=== PATIENT | male | born 1970 | race Caucasian/White ===

== ENCOUNTER 2024-03-15 15:46 | Emergency (ER) | payer BC, SELFPAY ==
[2024-03-15 15:52] VITALS: BP 125/74; PULSE 56; RESP 16; TEMP 36.8; O2SAT 100
--- NOTE | 2024-03-15 16:08 | ED.WOUNDLAC ---
HPI - Wound/Laceration General Chief Complaint: Wound/Laceration Stated Complaint: lac on forehead Time Seen by Provider: 03/15/24 16:05 Source: patient, RN notes reviewed and old records reviewed Mode of arrival: ambulatory Limitations: no limitations History of Present Illness HPI narrative: 54 [facility] with complaints of hitting his forehead when he opened the car door just prior to arrival with laceration vertical to tissue at left inner eyebrow with bleeding controlled. Patient reports that his tetanus is not up to date but refuses tetanus booster today while in clinic. Patient reports that he has a little headache but denies any dizziness or any nausea, states no LOC at time of incident. Onset (ago): minute(s) (within 30 minutes prior to arrival) Location: face (vertical at left inner eyebrow) Place: outdoors Patient tetanus UTD: No Treatments prior to arrival: bandage Related Data Home Medications Medication Instructions Recorded Confirmed pantoprazole 40 mg tablet,delayed 40 mg PO DAILY 03/15/24 03/15/24 release Allergies Allergy/AdvReac Type Severity Reaction Status Date / Time ibuprofen Allergy Dyspnea / Verified 03/15/24 15:59 SOB Review of Systems Review of Systems: CONSTITUTIONAL: Denies fever, chills, or sweats. CARDIOVASCULAR: Denies chest pain, palpitations, or edema. RESPIRATORY: Denies cough or dyspnea. SKIN: Reports vertical laceration to tissue area at inner left eyebrow pain to area with some swelling noted no LOC at time of injury MUSCULOSKELETAL: Denies musculoskeletal pain NEUROLOGIC: Denies numbness, or weakness. All systems reviewed & are unremarkable except as noted in HPI and below PMFSH Past Medical History Medical History (Updated 03/16/24 @ 10:44 by Deedee Alejandra NP) GERD (gastroesophageal reflux disease) Surgical History Surgical History (Updated 03/16/24 @ 10:45 by Deedee Alejandra NP) History of total replacement of both hip joints Social History Social History (Updated 03/16/24 @ 10:48 by Deedee Alejandra NP) Smoking status: Unknown if ever smoked Alcohol intake: current Alcohol use details: rare social Substance use type: does not use Living arrangements: with family Gender identity (if verbalized by the patient): Male Comments At time of signature, agree with nursing past medical, surgical, social and family history. There is no relevant family history pertinent to the presenting complaint Exam Narrative: GENERAL: Well-appearing, well-nourished, and in no acute distress. HEAD: Normocephalic, atraumatic. NECK: Supple. no lymphadenopathy CHEST: Clear to auscultation. No respiratory distress.SAO2 100% on room air HEART: Regular rate and rhythm. No murmur heard. Normal peripheral pulses. EXTREMITIES: Normal range of motion. No edema. SKIN: Warm, dry, no rash. Reports vertical 1 cm laceration to area of face near inner left eyebrow bleeding controlled no LOC at time of incident, see procedure note NEURO: No focal deficits. Alert and oriented x3. Course Course Level of Care: Express Care Visit Vital Signs Vital signs: Vital Signs Temperature 36.8 C 03/15/24 15:52 Pulse Rate 56 L 03/15/24 15:52 Respiratory Rate 16 03/15/24 15:52 Blood Pressure 125/74 03/15/24 15:52 Pulse Oximetry 100 03/15/24 15:52 Oxygen Delivery Room Air 03/15/24 15:52 Temperature 36.8 C 03/15/24 15:52 Pulse Rate 56 L 03/15/24 15:52 Respiratory Rate 16 03/15/24 15:52 Blood Pressure 125/74 03/15/24 15:52 Pulse Oximetry 100 03/15/24 15:52 Oxygen Delivery Room Air 03/15/24 15:52 Procedures Laceration inner eyebrow area: Date: 03/15/24 Time: 16:15 Site: face (inner eybrow area vertical laceration) Side (If applicable): left Size (cm): 1 Description: linear Depth: simple, single layer Local Anesthetic: none Pre-repa
== END 2024-03-15 16:44 | disposition home or self-care (01) ==
PROVIDERS: Emergency Provider Registered Nurse
DX: S01.81XA Laceration without foreign body of other part of head, initial encounter (principal); W22.8XXA Striking against or struck by other objects, initial encounter; K21.9 Gastro-esophageal reflux disease without esophagitis; Z96.643 Presence of artificial hip joint, bilateral
CPT/HCPCS: 12011; 99212; G0463

== ENCOUNTER 2024-11-28 14:44 | Outpatient (CLI) | payer BC, SELFPAY ==
--- NOTE | ~2024-11-28 | XR_ITS ---
Left Hand Technique: PA, oblique, and lateral views were obtained. Clinical History: Pain Findings: No acute fracture or dislocation is seen. Osseous alignment is anatomic. There is mild dege nerative change of the fifth PIP joint and third DIP joint. Soft tissues are unremarkable. Impression: Mild degenerative change of the fifth PIP joint and third DIP joints. Reviewed, dictated and finalized at location . Impression: Mild degenerative change of the fifth PIP joint and third DIP joints.
--- NOTE | ~2024-11-28 | XR_ITS ---
Right Hand Technique: PA, oblique, and lateral views were obtained. Clinical History: Pain Findings: No acute fracture or dislocation is seen. Osseous alignment is anatomic. Joint spaces are p reserved. Soft tissues are unremarkable. Impression: Unremarkable right hand. Reviewed, dictated and finalized at location M. Impression: Unremarkable right hand.
--- OUTSIDE RECORDS SUMMARY | 2024-11-28 16:32 | XMS_ITS | Encounter Summary ---
Author Organization [facility] Care Team Providers Care Sampler Pickup Name Role Phone Clayton Aguilar MD Primary Care Provider [phone] Kristy Coulter MD Primary Care Provider [phone] Zuhair Dennis MD Unavailable [phone] Albina Tian NP Primary Care Provider [phone] Juan Carlos Cortes MD Unavailable Encounter Details Date Type Department Care Team (Latest Contact Info) Description 03/25/2016 Orders Only [facility] ProviderMassiel MD [address] [place] [id number] Social History Tobacco Use Types Packs/Day Years Used Date Smoking Tobacco: Former Sex and Gender Information Value Date Recorded Sex Assigned at Not on file Legal Sex Male 2:52 AM [employer] Gender Identity Not on file Sexual Orientation Not on file documented as of this encounter Plan of Treatment Not on file documented as of this encounter Procedures Procedure Name Priority Date/Time Associated Diagnosis Comments PROCEDURE - RESULT 2016 12 :00 AM CDT documented in this encounter Results * PROCEDURE - RESULT (2016 12:00 AM CDT) Narrative 2016 12:00 AM CDT Ordered by an unspecified provider. us Historical Provider Final Res ult documented in this encounter Visit Diagnoses Not on filedocumented in this encounter Care Teams Sampler Pickup Relationship Specialty Start Date End Date Clayton Aguilar MD PCP - General 04/21/17 04/26/19 Kristy Coulter MD [facility] [place] [address] PCP - General 04/27/19 11/21/24 Albina Tian NP [address] [id number] PCP - General Internal Medicine 11/22/24 Zuhair Dennis MD [facility] [place] [address] Surgeon Orthopedic Surgery 09/02/21 Juan Carlos Cortes MD [address] [place] [address] Referring Physician Gastroenterology 11/22/24 documented as of this encounter
--- OUTSIDE RECORDS SUMMARY | 2024-11-28 16:32 | XMS_ITS | Clinical Summary ---
Author Organization [facility] Address [address] [place] [address] Care Team Providers Care Exceptional Children Teacher Assistant Name Role Phone Zuhair Dennis MD Unavailable [phone] Albina Tian NP Primary Care Provider [phone] Juan Carlos Cortes MD Unavailable [phone] Allergies Active Allergy Reactions Criticality Noted Date Comments Amoxicillin-Pot Clavulanate Rash Medium 06/27/20 21 Cefazolin Rash Medium 09/02/2021 Hydrocodone-Acetaminophen Dizziness Low Ibuprofen Shortness of breath High 10/28/[address] (PROTONIX) 40 mg EC tablet TAKE 1 TABLET BY MOUTH ONCE A DAY 90 tablet 9 Active celecoxib (CeleBREX) 200 mg capsuleIndicat ions:Osteoarth ritis Take 1 capsule (200 mg total) by mouth daily 30 capsule 11 5 11/18/19 26 Active ascorbic acid (ascorbic acid) 500 mg tablet,chewabl e Take 1 tablet/chew tab (500 mg total) by mouth daily 42 tablet/chew tab 2 11/23/19 25 Discontin ued(Thera py completed ) oxyCODONE-acet aminophen (PERCOCET) 5-325 mg per tabletIndicati ons:Pain Take 1-2 tablets by mouth every 4 (four) hours as needed for pain 60 tablet 2 11/23/19 25 Discontin ued(Thera py completed ) ALPRAZolam (XANAX) 0.5 mg tablet Take 1 tablet (0.5 mg total) by mouth as needed (Take 1 pill 30 minutes before the MRI. Mat take the other pill if still anxious begore the test.) 2 tablet 2 11/23/19 25 Discontin ued(Thera py completed ) naloxone (NARCAN) 4 mg/actuation spray,non-aero daquan Administer 1 spray into affected nostril(s) as needed for opioid reversal or respiratory depression Call 911. Administer a single spray in one nostril. Repeat every 3 minutes as needed if no or minimal response. 1 each 2 11/23/19 25 Discontin ued(Thera py completed ) clotrimazole-b etamethasone (LOTRISONE) cream clotrimazole-be tamethasone 1 %-0.05 % topical cream APPLY TO THE AFFECTED AND SURROUNDING AREAS OF SKIN BY TOPICAL ROUTE 2 TIMES PER DAY IN THE MORNING AND EVENING FOR 2 WEEKS 11/23/19 25 Discontin ued(Thera py completed ) Active Problems Problem Noted Date Diagnosed Date History of total right hip arthroplasty 11/23/19 25 Wellness examination 11/22/2024 Assessment & Plan (11/22/2024 12:24 PM CDT): Routine health maintenance objectives discussed and orders placed for any outstanding screening studies. Physical exam performed as above. Routine annual labs obtained and will be reviewed with patient when results available. Orders: PSA screen; Future Thyroid Function [place]; Future Lipid panel; Future Comprehensive metabolic panel; Future CBC with auto differential; Future History of arthroplasty of left hip 08/29/2022 So's esophagus 11/17/2018 Overview (11/22/2024): Does EGD every 3 years. Assessment & Plan (11/22/2024 12:24 PM CDT): Resolved Problems Problem Noted Date Diagnosed Date Resolved Date Aftercare following left hip joint replacement surgery 09/16/2021 08/29/2022 Psoas tendinitis, right hip 08/01/2021 11/22/2024 Trochanteric bursitis, left hip 05/18/2019 11/22/2024 Pain due to hip joint prosthesis 12/29/2018 11/22/2024 Primary osteoarthritis of left hip 12/10/2018 09/16/2021 Encounters Date Type Department Care Team Description 11/22/2024 11:00 AM CDT Office Visit [facility] Primary Care at [address] [address] Albina Tian NP BMI 22.0-22.9, adult (Primary Dx); Wellness examination; So's esophagus without dysplasia; Encounter for screening prostate specific antigen (PSA) measurement; Screening, lipid; Encounter for screening examination for impaired glucose regulation and diabetes mellitus; Screening, anemia, deficiency, iron; Screening for thyroid disorder; Primary osteoarthritis involving multiple joints 09/30/2024 Orders Only [facility] [address] [place], [place] [id number] Scanning, Provider from Last 3 Months Surgical History Surgery Date Site/Laterality Comments HIP SURGERY Right 3 surgeries on the right hip FL FLUORO GUIDED INJECTION HIP LEFT 12/22/2018 Left FL FLUORO GUIDED INJECTION HIP LEFT 04/27/2019 Left COLONOSCOPY APPENDECTOMY NOSE SURGERY 08/17/1981 - 08/16/1982 broke nose HIP SURGERY 08/17/2021 - 08/16/2022 Left total Medical History Medical History Date Comments Aftercare following joint re placement surgery Aftercare following joint replacement - (Added by BENJAMIN Conv) Gastric reflux Osteoarthritis Covid-19 08/2020 So's esophagus GERD (gastroesophageal reflux disease) Psoas tendinitis, right hip 08/01/2021 Family History Medical History Relation Name Comments Hypertension Father Family history of hypertension - (Added by TW Conv) Lung cancer Father No Known Problems Mother Alcohol abuse Other Arthritis Other Asthma Other Cancer Other Heart disease Other Relation Name Status Comments Father Mother Alive Other Social History Tobacco Use Types Packs/Day Years Used Date Smoking Tobacco: Former Cigarettes 0.1 2 S tarted: 1989 Passive Smoke Exposure: Past Smokeless Tobacco: Current Chew Tobacco Cessation:Ready to Q uit: Not Asked; Counseling Given: Not Answered Comments:Grew up social smoking AUDIT-C Answer Date Recorded Q1: How often do you have a drink containing alc ohol? Monthly or less 11/22/2024 Average Number of Drinks Not on file 025 Q3: How often do you have si x or more drinks on one occasion? Never 11/22/2024 PHQ-2 Answer Date Recorded PHQ-2 Total Score (If total score is 3 or more points, staff should administer the PHQ-9) 0 11/22/2024 Sex and Gender Information Value Date Recorded Sex Assigned at Not on file Legal Sex Male 2:52 AM T[employer] Gender Identity Not on file Sexual Orientation Not on file Obstetrics History Last Filed Vital Signs Vital Sign Reading Time Taken Comments Blood Pressure 110/70 11/22/2024 11:18 AM CDT Pulse 55 11/22/2024 11:18 AM CDT Temperature 36.4 C (97.5 F) 11/22/2024 11:18 AM CDT Respiratory Rate 16 11/22/2024 11:18 AM CDT Oxygen Saturation 98% 11/22/2024 11:18 AM CDT Inhaled Oxygen Concentration - - Weight 64.9 kg (143 lb) 11/22/2024 11:18 AM CDT Height 170.2 cm (5' 7 ) 11/22/2024 11:18 AM CDT Body Mass Index 22.4 11/22/2024 11:18 AM CDT Plan of Treatment Health Maintenance Due Date Last Done Comments Colon Cancer Screening-Colonoscopy 1969 Hepatitis C Screening 1969 Prostate Cancer Screening-PSA 1969 DTaP/Tdap/Td Vaccine (1 - Tdap) 02/02/1980 Hepatitis B Screening 1987 Zoster Vaccine (1 of 2) 2019 Covid-19 Vaccine (3 - 2023-2 5 season) 2024 09/17/2020, 08/20/2020 Influenza Vaccine (Season Ended) 2025 Depression Screening 11/22/2025 11/22/2024 Regular Well Visit/Exam 18-64 11/22/2025 11/22/2024 Pneumococcal vaccine <65 Aged Out No longer eligible based on patient's age to complete this topic Medical Devices Implanted Type Area Senior Php Web Developer Device Identifier Shelf Expiration Date Model / Serial / Lot Joint Right: Hip Description:rt hip replaced [employer] [id number] Mcleod 52mm Sector Hip Shell Acetabular Gription Sterile Latex Free - [id number] Implanted:Qty: 1 on 09/02/2021 by Zuhair Dennis MD at [facility] Left: Hip [employer] 05/16/2031 [id number] / / [id number] [employer] [id number] Mcleod 52mm 36mm Hip Neutral Liner Acetabular Altrx Sterile Latex Free - [id number] Implanted:Qty: 1 on 09/02/2021 by Zuhair Dennis MD at [facility] Left: Hip [employer] 06/16/2026 [id number] / / [id number] [employer] 1217-35-500 Mcleod 6.5mm 35mm Acetabular Cancellous Screw Bone Sterile - [id number] Implanted:Qty: 1 on 09/02/2021 by Zuhair Dennis MD at [facility] Left: Hip [employer] 07/16/2031 1217-35-500 / / [id number] [employer] 1217-30-500 Mcleod 6.5mm 30mm Acetabular Cancellous Screw Bone Revision - [id number] Implanted:Qty: 1 on 09/02/2021 by Zuhair Dennis MD at [facility] Left: Hip [employer] 06/16/2028 1217-30-500 / / [id number] [employer] [id number] Actis 105mm Collar Hip 5 High Offset Stem Femoral - [id number] Implanted:Qty: 1 on 09/02/2021 by Zuhair Dennis MD at [facility] Left: Hip [employer] 06/16/2031 [id number] / / [id number] [employer] [id number] Articul/Ernie 36mm Cementless Hip +5mm 12/14 Taper Head Femoral Latex Free - [id number] Implanted:Qty: 1 on 09/02/2021 by Zuhair Dennis MD at [facility] Left: Hip [employer] 01/14/2026 [id number] / / [id number] Procedures Procedure Name Priority Date/Time Associated Diagnosis Comments GI - RESULT 09/30/2024 9:17 PM TARGETEER from Last 3 Months Results * GI - RESULT (09/30/2024 9:17 PM TARGETEER) Anatomical Region Laterality Modality Other us Provider Scanning Final Result from Last 3 Months [place] Advance Directives For more information, please contact: [phone] * Full Code (Latest Code Status on File) Date Activated Date Inactivated Comments 09/02/2021 10:27 AM 09/02/2021 6:49 PM Care Teams Exceptional Children Teacher Assistant Relationship Specialty Start Date End Date Albina Tian NP [address] [address] PCP - General Internal Medicine 11/22/24 Zuahir Dennis MD Surgeon Orthopedic Surgery 09/02/21 Juan Carlos Cortes MD [address] [place] [address] Referring Physician Gastroenterology 11/22/24
--- OUTSIDE RECORDS SUMMARY | 2024-11-28 16:32 | XMS_ITS | Referral Summary ---
Author Organization [facility] Address [address] [place] [address] Care Team Providers Care Front Office Developer Name Role Phone Zuhair Dennis MD Unavailable [phone] Albina Tian NP Primary Care Provider [phone] Juan Carlos Cortes MD Unavailable [phone] Encounters Date Type Department Care Team Description 11/22/2024 11:00 AM CDT Office Visit [facility] Primary Care at [address] [address] Albina Tian NP BMI 22.0-22.9, adult (Primary Dx); Wellness examination; So's esophagus without dysplasia; Encounter for screening prostate specific antigen (PSA) measurement; Screening, lipid; Encounter for screening examination for impaired glucose regulation and diabetes mellitus; Screening, anemia, deficiency, iron; Screening for thyroid disorder; Primary osteoarthritis involving multiple joints 09/30/2024 Orders Only [facility] [address] [place] [address] Scanning, Provider from Last 3 Months Allergies Active Allergy Reactions Criticality Noted Date [...] available. Orders: PSA screen; Future Thyroid Function [place]; Future Lipid panel; Future Comprehensive metabolic panel; [...] Primary osteoarthritis of left hip 12/10/2018 09/16/2021 Social History Tobacco Use Types Packs/Day Years [...] on file Legal Sex Male 2:52 AM [employer] Gender Identity Not on file Sexual Orientation Not on file Last Filed Vital Signs Vital Sign Reading [...] 11/22/2024 11:18 AM CDT Plan of Treatment Not on file Medical Devices Implanted Type Area Abstractor Device Identifier Shelf Expiration Date Model / Serial / Lot Joint Right: Hip Description:rt hip replaced [employer] [id number] [place] 52mm Sector Hip Shell Acetabular Gription Sterile Latex Free - [id number] Implanted:Qty: 1 on 09/02/2021 by Zuhair Dennis MD at [facility] Left: Hip [employer] 05/16/2031 [id number] / / [id number] [employer] [id number] Moreland 52mm 36mm Hip Neutral Liner Acetabular Altrx Sterile Latex Free - [id number] Implanted:Qty: 1 on 09/02/2021 by Zuhair Dennis MD at [facility] Left: Hip [employer] 06/16/2026 [id number] / / [id number] [employer] 1217-35-500 Moreland 6.5mm 35mm Acetabular Cancellous Screw Bone Sterile - [id number] Implanted:Qty: 1 on 09/02/2021 by Zuhair Dennis MD at [facility] Left: Hip [employer] 07/16/2031 1217-35-500 / / [id number] [employer] 1217-30-500 [place]land 6.5mm 30mm Acetabular Cancellous Screw Bone Revision - [id number] Implanted:Qty: 1 on 09/02/2021 by Zuhair Dennis MD at [facility] Left: Hip [employer] 06/16/2028 1217-30-500 / / [id number] [employer] [id number] Actis 105mm Collar Hip 5 High Offset Stem Femoral - [id number] Implanted:Qty: 1 on 09/02/2021 by Zuhair Dennis MD at [facility] Left: Hip [employer] 06/16/2031 [id number] / / [id number] [employer] [id number] Articul/Ernie 36mm Cementless Hip +5mm 07/30 Taper Head Femoral Latex Free - [id number] Implanted:Qty: 1 on 09/02/2021 by Zuhair Dennis MD at [facility] Left: Hip [employer] 01/14/2026 [id number] / / [id number] Procedures Procedure Name Priority Date/Time Associated Diagnosis Comments GI - RESULT 09/30/2024 9:17 PM BLOW TORCH BURNER from Last 3 Months Results * GI - RESULT (09/30/2024 9:17 PM BLOW [employer]CH [employer]URNER) Anatomical Region Laterality Modality Other us Provider Scanning Final Result from Last 3 Months Insurance [place] Advance Directives For more information, please contact: [phone] * Full Code (Latest Code Status on File) Date Activated Date Inactivated Comments 09/02/2021 10:27 AM 09/02/2021 6:49 PM Care Teams Front Office Developer Relationship Specialty Start Date End Date Albina Tian NP [address] [address] PCP - General Internal Medicine 11/22/24 Zuhair Dennis MD Surgeon Orthopedic Surgery 09/02/21 Juan Carlos Cortes MD [address] [place] [address] Referring Physician Gastroenterology 11/22/24
--- OUTSIDE RECORDS SUMMARY | 2024-11-28 16:32 | XMS_ITS | Clinical Summary ---
Author Organization [facility] Address [address] [place] [address] Care Team Providers Care Inoculator Name Role Phone Unavailable Primary Care Provider Unavailabl e Allergies Active Allergy Reactions Criticality Noted Date Comments Amoxicillin-Pot Clavulanate Rash Medium 06/27/20 21 Cefazolin Rash Medium 09/02/2021 Hydrocodone-Acetaminophen Dizziness Low 10/24/2024 Ibuprofen Anaphylaxis,Shortnes s of Breath High 10/28/2010 Medications pantoprazole EC (PROTONIX) 40 MG tablet 08/29/2024 Active Active Problems No known active problems Encounters Date Type Department Care Team Description 11/14/2024 Scan HEALTH INFO [facility] Scanned, Doc Med [facility] 10/24/2024 2:20 PM CDT Office Visit [facility] Medical [facility] Orthopedic & Sports Medicine [facility] [address] [place] [address] Xavier Vasquez MD New Patient (Bilateral feet ) 10/24/2024 Scan [facility] HEALTH INFO SRVCS Scanned, Doc Med Group 10/24/2024 Travel 10/18/2024 Orders Only [facility] Orthopedic & Sports Medicine [facility] [address] [place] [address] Xavier Vasquez MD from Last 3 Months Family History Medical History Relation Comments Alcohol Abuse Father COPD Father Cancer Father Hypertension Father Relation Status Comments Father Social History Tobacco Use Types Packs/Day Years Used Date Smoking Tobacco: Never Smokeless Tobacco: Current Chew Tobacco Cessation:Ready to Q uit: No; Counseling Given: Yes Comments:Chewing Tabacco Alcohol Use Standard Drinks/Week Comments Not Currently 0 (1 standard drink = 0.6 oz pur e alcohol) about 2-3 beers twice a year PHQ-2 Answer Date Recorded Patient Health Questionnaire-2 Score 0 10/24/2024 Sex and Gender Information Value Date Recorded Sex Assigned at Not on file Legal Sex Male 7:54 PM CDT Gender Identity Not on file Sexual Orientation Not on file Last Filed Vital Signs Vital Sign Reading Time Taken Comments Blood Pressure 101/65 10/24/2024 2:24 PM CDT Pulse 64 10/24/2024 2:24 PM CDT Temperature 36.9 C (98.4 F) 10/24/2024 2:24 PM CDT Respiratory Rate - - Oxygen Saturation - - Inhaled Oxygen Concentration - - Weight 63.7 kg (140 lb 6.4 oz) 10/24/2024 2:24 P M CDT Height 170.2 cm (5' 7 ) 10/24/2024 2:24 PM CDT Body Mass Index 21.99 10/24/2024 2:24 PM CDT Plan of Treatment Health Maintenance Due Date Last Done Comments Colorectal Cancer Screening Colonoscopy (10 Years) 1969 Annual Physical 02/02/1972 Hepatitis C 1987 DTaP, Tdap and Td Vaccines ( 1 - Tdap) 02/02/1988 Hepatitis B Vaccines (1 of 3 - 19+ 3-dose series) 02/02/1988 Zoster Vaccines (1 of 2) 2019 COVID-19 Vaccine (3 - 2023-2 5 season) 2024 09/17/2020, 08/20/2020 PHQ-2 (Physician Foster) Completed 10/24/2024 Meningococcal B Vaccine Aged Out No l onger eligible based on patient's age to complete this topic Meningococcal Vaccine Aged Out No bry kush eligible based on patient's age to complete this topic Pneumococcal Vaccine: Pediatrics (0 to 5 Years) and At-Risk Patients (6 to 49 Years) Aged Out No longer eligible b ased on patient's age to complete this topic RSV Immunizations Under 20 Months Aged Out No longer eligible b ased on patient's age to complete this topic Procedures Procedure Name Priority Date/Time Associated Diagnosis Comments OXR LT FOOT M3V Routine 10/24/2024 2:23 PM CDT Left foot pain OXR RT FOOT M3V Routine 10/24/2024 2:23 PM CDT Right foot pain from Last 3 Months Results * OXR LT FOOT M3V (10/24/2024 2:23 PM CDT) Anatomical Region Laterality Modality Radiographic Fany ging Narrative 10/24/2024 4:18 PM CDT PROCEDURE: OXR LT FOOT M3V VIEWS: 3 DATE: 10/24/24 CLINICAL INDICATION: FINDINGS: Moderate to severe degenerative changes of the midfoot most notably at the third and also the second tarsometatarsal joints. No fractures. IMPRESSION: Degenerative changes of the midfoot without acute changes. us Xavier Vasquez MD GENERAL IMAGING Final Result * OXR RT FOOT M3V (10/24/2024 2:23 PM CDT) Anatomical Region Laterality Modality Radiographic Fany ging Narrative 10/24/2024 4:17 PM CDT PROCEDURE: OXR RT FOOT M3V VIEWS: 3 DATE: 10/24/24 CLINICAL INDICATION: FINDINGS: Mild degenerative changes through the midfoot. Mild pes planus. No fractures. IMPRESSION: No acute findings right foot. us Xavier Vasquez MD GENERAL IMAGING Final Result from Last 3 Months Insurance [facility]
--- OUTSIDE RECORDS SUMMARY | 2024-11-28 16:32 | XMS_ITS | Continuity of Care Document ---
Author Organization [facility] Address [address] [place] [address] 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 Name Role Phone Jae Conde MD, FACS Unavailable Unavailab le Allergies, Adverse Reactions, Alerts Substance Reaction Status Criticality ibuprofen Active No Information Medications Medication Instructions Dosage Effective Dates (start - stop) Status Comments Protonix 20 mg tablet,delayed release take 2 tablet by oral route every day 40 MG - Active Procedures Procedure Date Eye Exam, New Patient Advance Directives Directive Yes / No Effective Date File Name No Information Encounters Encounter Description Practice Location Reason(s) For Visit Diagnoses Date Provider Providers Copied on Encounter [facility], [address] [place] [address] [address], [place], [place], [id number], tel:[phone] [address] [place] [address] [place] Pain/swelli ng (chief complaint) Hordeolum externum of left lower eyelid Amaya Rowe. [address] [place] [address] [facility], [address], [place], [place], [id number], [place]. tel:[phone] Referring Provider: Chrissie Rodas OD, [address] [place], [address]. tel:[phone] Family History Family Member Type Diagnosis Age At Onset No Information Payers Payer name Insurance type Covered republican ID Authoriza tion(s) No Information Social History Type Description Quantity Date Captured Comments Alcohol Use Details No Caffeine Use Details Tobacco Use Status Chews tobacco Smoking Status Unknown if ever smoked 20 Non-Smoking Tobacco Use Details Chewing: No Details Available Chewing: No Details Available Sex Male Chief Complaint And Reason For Visit From encounter dated '03/09/2020 10:30'. Pain/swelling (chief complaint). Description: The 50 year old male presents for evaluation of Pain/swelling in the LLL. 5-6 days ago LLL became red, swollen, and painful, pt went to see OD and she pushed on the lid, gave pt the option of leaving it be or perforating the lid. Pt chose to leave the lid alone and start warm compress bit-tid, which pt state was irritation to the skin and the lid was very painful yesterday. Pt took a warm shower and last night, the lid popped and pt state LLL is less swollen and feel much better. Reason For Referral Reason For Referral No Information Plan Of Treatment Date Type Action Status Goal Tobacco cessation counseling completed Patient Education Ree: Mateo bach Instructions completed History Of Present Illness Encounter Date Complaint History Of Prese nt Illness Pain/swelling The 50 year old male presents for evaluation of Pain/swelling in the LLL. 5-6 days ago LLL became red, swollen, and painful, pt went to see OD and she pushed on the lid, gave pt the option of leaving it be or perforating the lid. Pt chose to leave the lid alone and start warm compress bit-tid, which pt state was irritation to the skin and the lid was very painful yesterday. Pt took a warm shower and last night, the lid popped and pt state LLL is less swollen and feel much better. Functional Status Date Functional Assessmen t No Information Instructions Date Instruction Additional Infor patrick Impression/Plan Assessments Type Assessment Date assessment Hordeolum externum of left lower eyelid Patient Care Teams Name Effective Dates (start - stop) Status Members No Information
--- OUTSIDE RECORDS SUMMARY | 2024-11-28 16:32 | XMS_ITS | Encounter Summary ---
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
== END 2024-11-28 14:45 | disposition home or self-care (01) ==
PROVIDERS: PCP Nurse Practitioner; Visit Provider Plastic Surgery
DX: M25.531 Pain in right wrist (principal); M19.042 Primary osteoarthritis, left hand
CPT/HCPCS: 73130

== ENCOUNTER 2025-01-26 10:15 | Outpatient (CLI) | payer BC, SELFPAY ==
--- NOTE | ~2025-01-26 | MR_ITS ---
EXAMINATION: MR wrist LT wo/w con DATE: 01/26/2025 11:14 INDICATION: Left wrist pain. Assess ganglion cyst and possible scapholunate ligament tear TECHNIQUE: Magnetic resonance imaging (MRI) of the left wrist was performed without and with 13 mL Mu ltihance intravenous contrast. Sequences performed include axial, sagittal and coronal T1-weighted FS E and T2-weighted FS FSE, sagittal PD-weighted FSE, axial T1-weighted FS FSE and postcontrast axial, sagittal and coronal T1-weighted FS FSE. COMPARISON: None FINDINGS: Bones/other: There is dorsal intercalated segment instability (DISI) with dorsal rotatory subluxation of the lunat e resulting in increased scapholunate and lunocapitate angles consistent with scapholunate ligament i nsufficiency. This is likely chronic given the atypical pattern of secondary severe osteoarthritis at the radioscaphoid articulation consistent with scapholunate advanced collapse (SLAC) wrist. There is amorphous intermediate signal intensity likely torn and scarred scapholunate ligament tissues partia lly the widened scapholunate interval. The lunotriquetral ligament remains normal. Additional moderate osteoarthritis at the triscaphe joint and at the scaphoid capitate articulation o f the midcarpal joint. Mild osteoarthritis at the distal radioulnar, first carpometacarpal and first metacarpophalangeal joints. No fracture or pathologic marrow replacing process. There is a 10 x 5 x 6 mm ganglion cyst positioned palmar to the ulnar styloid process and slightly dorsal and ulnar to a s imilar sized fluid collection at the pisotriquetral recess. There is enhancing synovitis in the dorsa l, volar and radial sided recess of the wrist joint and at the dorsal recess of the midcarpal joint. Triangular fibrocartilage complex (TFCC): The triangular fibrocartilage including its foveal and styloid attachments as well as the dorsal and volar radioulnar ligaments are normal. The ulnar collateral ligament, ulnotriquetral ligament and men iscal homologue are normal. The extensor carpi ulnaris tendon sheath is normal. Extensor wrist: Small amount of fluid signal consistent with mild tenosynovitis extending along the normal-appearing extensor carpi radialis longus and brevis tendons. Remaining extensor tendons of the wrist are also n ormal. Flexor wrist: The flexor tendons of the wrist are normal. No abnormality in the carpal tunnel with normal median n erve. Guyon's canal: Guyon's canal including the ulnar nerve and artery are normal. IMPRESSION: 1. 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 2. Mild tenosynovitis extending along the normal extensor radialis longus and brevis tendons which di rectly underlies the marker indicating the region of concern. Reviewed, dictated and finalized at location A. IMPRESSION: 1. Constellation of findings consistent with chronic tear of the scapholunate l igament with secondary dorsal intercalated segment instability (DISI) and scaph olunate advanced collapse (SLAC) wrist including severe secondary osteoarthriti s at the radial scaphoid articulation of the wrist joint. 2. Mild tenosynovitis extending along the normal extensor radialis longus and b chucho tendons which directly underlies the marker indicating the region of conc marie.
--- NOTE | ~2025-01-26 | CT_ITS ---
Noncontrast CT scan of the right wrist CLINICAL HISTORY: Pain TECHNIQUE: Axial noncontrast imaging of the right wrist was performed. Sagittal and coronal reformatt ed images were constructed. Dose reduction technique was used on this scan by utilizing automated exp osure control and iterative reconstruction technique. The dose-length product (DLP) was 90.57 mGy-cm. Findings: There is a widening of the scapholunate interval is 6 mm, suspicious for underlying scaphol unate ligament tear. There is associated probable DISI. No fracture seen. There is mild to moderate d egenerative change of the radial scaphoid articulation. Remaining joint spaces of the wrist are intac t. No gross soft tissue abnormality seen. Flexor and extensor tendons are grossly intact. No soft tissue mass or fluid collection evident. IMPRESSION: Findings suspicious for scapholunate ligament tear, with widening of the scapholunate interval, and a ssociated DISI. Mild to moderate degenerative change of the radial scaphoid articulation. Reviewed, dictated and finalized at location . IMPRESSION: Findings suspicious for scapholunate ligament tear, with widening of the scapho lunate interval, and associated DISI. Mild to moderate degenerative change of the radial scaphoid articulation.
== END 2025-01-26 10:16 | disposition home or self-care (01) ==
PROVIDERS: PCP Nurse Practitioner; Visit Provider Plastic Surgery
DX: S63.512A Sprain of carpal joint of left wrist, initial encounter (principal); X58.XXXA Exposure to other specified factors, initial encounter; S63.501A Unspecified sprain of right wrist, initial encounter; M19.031 Primary osteoarthritis, right wrist
CPT/HCPCS: 73200; 73223; A9577